=== PATIENT | female | born 1990 | race Hispanic/Latino ===

== ENCOUNTER 2024-01-23 04:43 | Emergency (ER) | payer BC ==
[2024-01-23] MEDS ORDERED: Ondansetron PF 4 MG/2 ML Vial ONE (05:00)
[2024-01-23] MEDS ORDERED: Famotidine/PF 20 mg/2ml Vial ONE (05:00)
[2024-01-23] MEDS ORDERED: Ketorolac Tromethamine 30 MG (1 mL) VIAL ONE (05:00)
[2024-01-23 05:15] LABS: #Basophils 0.01 10x3/uL (0.0-0.2); #Eosinophils 0.09 10x3/uL (0.0-0.5); #Monocytes 0.64 10x3/uL (0.0-1.1); #Neutrophils 6.14 10x3/uL (1.5-8.4); %Basophils 0.1 % (0.0-2.0); %Eosinophils 0.9 % (0.0-6.0); %Lymphocytes 29.4 % (18.0-47.0); %Monocytes 6.5 % (0.0-10.0); %Neutrophils 62.8 % (40.0-75.0); Hematocrit 45.6 % (34.9-44.5); Mean Corpuscular HGB CONC 35.1 g/dL (32.0-36.0); Mean Corpuscular Hemoglobin 29.4 pg (27.0-33.0); Mean Corpuscular Volume 83.7 fL (81.6-98.3); Mean Platelet Volume 9.1 fL (7.4-10.4); Platelet Count 428 10x3/uL (150-450); RBC Distribution Width 12.3 % (11.5-14.5); Red Blood Cell (RBC) Count 5.45 10x6/uL (3.90-5.03); White Blood Cell (WBC) Count 9.8 10x3/uL (3.5-10.5)
[2024-01-23 05:19] LABS: BHCG - Serum Negative (NEGATIVE); Pregs Control Background? CLEAR/WHITE (CLR/WHITE); Pregs Control Bar Appear? YES (CONTROL BAR)
[2024-01-23 05:25] LABS: ALT (SGPT) 61 U/L (8-55); AST (SGOT) 32 U/L (5-34); Albumin 4.2 g/dL (3.5-5.0); Alkaline Phosphatase 52 U/L (40-110); Anion Gap 17 mmol/L (10-20); BUN (Urea Nitrogen) 16 mg/dL (7.0-18.7); Calc. Creatinine Clearance 0 mL/min (70-130); Calcium 9.8 mg/dL (7.8-10.44); Carbon Dioxide 18 mmol/L (22-29); Chloride 105 mmol/L (98-107); Estimated GFR 98; Globulin 3.6 g/dL (2.4-3.5); Glucose 163 mg/dL (70-105); Lipase 25 U/L (8-78); Magnesium 1.6 mg/dL (1.6-2.6); Potassium 3.6 mmol/L (3.5-5.1); Protein, Total 7.8 g/dL (6.0-8.3); Sodium 136 mmol/L (136-145)
[2024-01-23 05:26] LABS: Bilirubin Neg (Negative); Blood, Urine 10 (Negative); Glucose, Urine (Dipstick) Normal (Negative); Ketone, Urine Negative (Negative); Leukocyte 500 (Negative); Nitrite Negative (Negative); Protein, Urine (Dipstick) 30 mg/dl (Neg-Trace); Specific Gravity, Urine 1.025 (1.005-1.030); Urobilinogen Normal mg/dL (Less than 2)
[2024-01-23 05:56] LABS: Clarity Cloudy (Clear); RBC/HPF 0-3 HPF (0-3)
[2024-01-23 05:57] LABS: Bacteria/HPF 1+ HPF (None Seen); CAUTI Indications for Culture Pelvic or flank pain
[2024-01-23 05:58] LABS: Urine Culture Reflex No No
== END 2024-01-23 06:09 | disposition home or self-care (01) ==
LOC: CSHERS 04:43
DX: R11.2 Nausea with vomiting, unspecified (principal); R19.7 Diarrhea, unspecified; E11.9 Type 2 diabetes mellitus without complications; E78.5 Hyperlipidemia, unspecified; Z79.899 Other long term (current) drug therapy; Z79.84 Long term (current) use of oral hypoglycemic drugs
CPT/HCPCS: 80053; 81001; 83690; 83735; 84703; 85025; 96361; 96374; 96375; J1885; J2405; J3490